=== PATIENT | female | born 1995 | race Native Hawaiian/Other Pacific Islander ===

== ENCOUNTER 2018-01-18 10:30 | Emergency (ER) | payer OTHER ==
[~2018-01-18] VITALS: Ht 152.4 cm; Wt 63.5 kg
--- NOTE | 2018-01-18 14:27 | CT SCAN REPORT ---
EXAMINATION: CT SINUS WITH IV CONTRAST CLINICAL INFORMATION: Left facial swelling. Evaluate abscess. COMPARISON: None TECHNIQUE: Multidetector CT imaging examination of the face was performed with intravenous administration of 95 mL of Optiray 320 nonionic contrast material. DLP: 599 mGy-cm FINDINGS: There is stranding of subcutaneous fat within the left face anterolateral to the mandible and masseter muscle. However, no focal fluid collection within superficial or deep soft tissues. Mild lymphadenopathy is present. Within the superior left neck, largest level 2A lymph node is 1.1 cm short axis dimension. The largest left submandibular lymph node measures 1.1 cm short axis dimension. At the left globe, there is dehiscence of lamina papyracea inferiorly, and this could represent a developmental defect or remote posttraumatic defect. There is herniation of orbital fat into the defect. Otherwise, the left orbit is unremarkable. The orbital apex, optic canals, and retrobulbar fat planes are normal. The maxilla, mandible and temporomandibular joints are intact. No evidence of periodontal disease. Nasal bones, pterygoid plates and zygomatic arches are normal. The paranasal sinuses are well-aerated and the ostiomeatal units are patent. No air-fluid levels in the paranasal sinuses. Skull base is intact. The mastoid air cells and middle ear cavities are clear. The visualized calvarium and intracranial structures are unremarkable. The craniocervical junction and atlantoaxial articulation are normal. IMPRESSION: - Subcutaneous tissue inflammation/edema of the left face without soft tissue abscess. - Associated reactive lymphadenopathy at level 1B and 2A of the left neck. - No evidence of active sinusitis or periodontal disease. 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
--- NOTE | 2018-01-18 15:34 | ED THROAT/DENTAL COMPLAINT ---
History of Present Illness General Chief Complaint: Sore Throat, Dental Pain Stated Complaint: TOOTH PAIN Source: patient Exam Limitations: no limitations Vital Signs & Intake/Output Vital Signs & Intake/Output Vital Signs Date Time Temp Pulse Resp B/P B/P Pulse O2 O2 Flow FiO2 Mean Ox Delivery Rate 01/18 1043 98.6 111 18 130/88 98 Room Air Allergies Coded Allergies: No Known Allergies (01/18/18) Triage Note: 22 YO FEMALE TO TRIAGE FOR EVAL OF L SIDED TOOTH PAIN WITH FACIAL SWELLING. Triage Nurses Notes Reviewed? yes : No Patient currently breastfeeds: No HPI: 22 YEAR OLD FEMALE WITH PRIOR DENTAL ISSUES PRESENTS TO ER WITH LEFT FACIAL SWELLING AND TOOTH PAIN SINCE YESTERDAY. WOKE UP WITH A VERY SWOLLEN JAW. NO FEVER OR CHILLS. NO CP, SOB. ABLE TO SWALLOW. LIMITED ROM OF HER JAW. PAIN IS 6/10 NOW. NOTHING REALLY HELPS OR MAKES IT WORSE. HAS A PLAN TO SEE HER DENTIST NEXT WEEK FOR EVAULATION OF GETTING HER WISDOM TEETH OUT. THIS HAS HAPPENED BEFORE APPARENTLY. (Angelia Silverman PA-C) Reconcile Medications Amoxicillin/Potassium Clav (Augmentin 875-125 Tablet) 875 MG-125 MG TABLET 1 TAB PO BID TOOTH INFECTION (Pino ZURITA,[facility]) Past History Travel History Traveled to [place] past 21 day No Medical History Any Pertinent Medical History? none Neurological: NONE EENT: NONE Cardiovascular: NONE Respiratory: NONE Gastrointestinal: NONE Hepatic: NONE Renal: NONE Musculoskeletal: NONE Psychiatric: NONE Endocrine: NONE Blood Disorders: NONE Cancer(s): NONE TEARER/Reproductive: NONE Surgical History Surgical History: non-contributory Psychosocial History What is your primary language Vietnamese Tobacco Use: Never used Family History Hx Contributory? No (Angelia Silverman PA-C) Review of Systems Review of Systems Constitutional: Denies: no symptoms, see HPI, chills, diaphoresis, fever, malaise, weakness, unexplained weight loss. EENTM: Reports: mouth pain, tooth pain. Respiratory: Denies: no symptoms. Cardiovascular: Denies: no symptoms. GI: Denies: no symptoms. Genitourinary: Denies: no symptoms. Musculoskeletal: Denies: no symptoms. Skin: Denies: no symptoms. Neurological/Psychological: Denies: no symptoms. Hematologic/Endocrine: Denies: no symptoms. Immunologic/Allergic: Denies: no symptoms. All Other Systems: Reviewed and Negative (Angelia Silverman PA-C) Physical Exam Physical Exam General Appearance: well developed/nourished, no apparent distress, alert, awake Head: atraumatic, normal appearance Mouth/Throat: dental tenderness, mandibular swelling Neck: normal inspection, supple Cardiovascular/Respiratory: normal breath sounds, normal peripheral pulses Skin: intact, normal color Core Measures ACS in differential dx? No Sepsis Present: No Sepsis Focused Exam Completed? No (Angelia Silverman PA-C) Progress Differential Diagnosis: odontogenic abscess, INFECTED WISDOM TOOTH Plan of Care: Orders Procedure Date/time Status URINE 01/18 1206 Complete Laboratory Tests 01/18/18 1217: Urine Test NEGATIVE PATIENT DID NOT HAVE ANY ABSCESS ON CT OF HER FACE. SHE WILL DISCHARGE HOME WITH AUGMENTIN X 10 DAYS AND FOLLOW UP WITH HER PRIMARY MD AND DENTIST. PT IS AGREEEABLE TO THIS PLAN. Diagnostic Imaging: Viewed by Me: CT Scan. Radiology Impression: NO ABSCESS (Angelia Silverman PA-C) Departure Departure Disposition: HOME OR SELF CARE Condition: Stable Referrals: Patient Has No Primary Care Dr (PCP/Family) Additional Instructions: pT HAS A DENTIST SHE ALREADY HAS A FOLLOW UP APPT WITH TO SEE ABOUT GETTING HER WISDOM TEETH OUT. F/U IN 1 WEEK. RETURN TO ER IF WORSENING PAIN, FEVER, OR OTHER SYMPTOMS Departure Forms: Customer Survey General Discharge Information Prescriptions: Current Visit Scripts Amoxicillin/Potassium Clav (Augmentin 875-125 Tablet) 1 TAB PO BID #20 TAB (Angelia Silverman PA-C) Departure Clinical Impression Primary Impression: Tooth infection PA/TUBE SPLICER Co-Sign Statement Statement: ED Attending supervision documentation- [] I saw and evaluated the patient. I have also reviewed all the pertinent lab results and diagnostic results. I agree with the findings and the plan of care as documented in the PA's/TUBE SPLICER's documentation. [x] I have reviewed the ED Record and agree with the PA's/TUBE SPLICER's documentation. [] Additions or exceptions (if any) to the PAs/TUBE SPLICER's note and plan are summarized below: [] (Pino ZURITA,[facility])
[2018-01-18] MEDS ORDERED: AUGMENTIN 875-1 EACH PO (15:42)
[2018-01-18 15:50] VITALS: BP 136/72
== END 2018-01-18 15:51 ==
LOC: ERH 10:30
DX: K04.7 Periapical abscess without sinus (principal)
CPT/HCPCS: 81025